=== PATIENT | male | born 1945 | race Caucasian/White ===

== ENCOUNTER → 2016-07-16 | Outpatient (CLI) | payer MEDICARE | END | disposition home or self-care (01) | LOC: PCVCCLINIC 13:15 | PROVIDERS: ATTEND Internal Medicine | DX: I25.10 Atherosclerotic heart disease of native coronary artery without angina pectoris (principal); I65.29 Occlusion and stenosis of unspecified carotid artery; I10 Essential (primary) hypertension; E78.5 Hyperlipidemia, unspecified; E11.9 Type 2 diabetes mellitus without complications; M19.90 Unspecified osteoarthritis, unspecified site | CPT/HCPCS: 93005; G0463 ==

== ENCOUNTER → 2017-01-28 | Outpatient (CLI) | payer MEDICARE | END | disposition home or self-care (01) | LOC: PCVCCLINIC 13:33 | PROVIDERS: ATTEND Internal Medicine | DX: I25.10 Atherosclerotic heart disease of native coronary artery without angina pectoris (principal); I10 Essential (primary) hypertension; I65.23 Occlusion and stenosis of bilateral carotid arteries; E78.2 Mixed hyperlipidemia; E11.9 Type 2 diabetes mellitus without complications; I73.00 Raynaud's syndrome without gangrene; M19.90 Unspecified osteoarthritis, unspecified site; I77.9 Disorder of arteries and arterioles, unspecified; Z77.098 Contact with and (suspected) exposure to other hazardous, chiefly nonmedicinal, chemicals; Z79.82 Long term (current) use of aspirin; Z79.84 Long term (current) use of oral hypoglycemic drugs; Z79.899 Other long term (current) drug therapy; Z87.891 Personal history of nicotine dependence | CPT/HCPCS: 93005; G0463 ==

== ENCOUNTER → 2017-07-29 | Outpatient (CLI) | payer MEDICARE | END | disposition home or self-care (01) | LOC: PCVCCLINIC 13:59 | DX: I25.119 Atherosclerotic heart disease of native coronary artery with unspecified angina pectoris (principal); I10 Essential (primary) hypertension; I65.23 Occlusion and stenosis of bilateral carotid arteries; E78.2 Mixed hyperlipidemia; E11.9 Type 2 diabetes mellitus without complications; I73.00 Raynaud's syndrome without gangrene; Z77.098 Contact with and (suspected) exposure to other hazardous, chiefly nonmedicinal, chemicals; Z87.891 Personal history of nicotine dependence; Z79.899 Other long term (current) drug therapy; Z79.82 Long term (current) use of aspirin; Z79.84 Long term (current) use of oral hypoglycemic drugs | CPT/HCPCS: 80061; 93005; G0463 ==

== ENCOUNTER → 2018-02-26 | Outpatient (CLI) | payer MEDICARE ==
[~2018-02-26] MED LIST: REGADENOSON 0.4 MG/5 ML DISP.SYRIN. IV ONE
--- NOTE | 2018-02-26 16:21 | PCVCIMAG ---
APPROVED REPORT Imaging Protocol: Rest Tc-99m/Stress Tc-99m 1 day Study performed: 02/26/2018 13:34:30 Indication: CAD Patient Location: Out-Patient Stress Nurse: Kenyatta Goldman RN MT Tech:JIMBO Pacheco Ht: 5 ft 10 in Wt: 215 lbs BSA: 2.15 m2 HR: 78 bpm BP: 132/76 mmHg BMI: 30.8 Rhythm: Sinus Rhythm, ST & T abnormalities Medical History Medications: Amlodipine, ASA, Atorvastatin, Lisinopril, Metformin, Metoprolol, Omeprazole Allergies: No known drug allergies Cardiac Risk Factors: Age, HTN, Hyperlipidemia, DM, Tobacco History (Former) Previous Cardiac Procedures: PCI - Circ Pretest Chest Pain Characteristics: No chest pain Physical Disabilities: Breathing, patient refuses Saravanan protocol Meds Held (24 hrs): Metoprolol Resting Data Rest SPECT myocardial perfusion imaging was performed in supine position 45 minutes following the intravenous injection of 11.8 mCi of Tc-99m Sestamibi. Time of rest injection: 1250 Date: 02/26/2018 Administration Route: IV Administration Site: Right AC Pharmacologic Stress Pharmacologic stress test was performed by injecting Regadenoson 0.4 mg IV push over 10-15 seconds immediately followed by the intravenous injection of 32.8 mCi of Tc-99m Sestamibi. Time of stress injection: 1410 Date: 02/26/2018 Administration Route: IV Administration Site: Right AC Gated Stress SPECT was performed 45 minutes after stress injection. The images were gated to evaluate regional wall motion and calculate left ventricular ejection fraction. Stress Test Details Stress Test: Pharmacologic stress was paired with low level exercise. Reason for pharmacologic stress test: Breathing. HRMax Heart Rate (APMHR): 147 bpm Resting HR: 78 bpmTarget HR (85% APMHR): 124 bpm Max HR Achieved: 108 bpm % of APMHR: 73 Recovery HR: 79 bpm BP Resting BP: 132/76 mmHg Recovery BP: 125/63 mmHg ECG Resting ECG: Sinus Rhythm, nonspecific ST-T abnormalities Stress ECG: Sinus Tachycardia, nonspecific ST-T abnormalities ST Change: None Maximum ST Deviation: 0 mm Arrhythmia: None Recovery ECG: Sinus Rhythm, nonspecific ST-T abnormalities Recovery ST Change: None Recovery ST Deviation: 0 mm Recovery Arrhythmia: None Clinical Reason for Termination: Completed protocol Stress Symptoms: Dyspnea, Lightheaded Exercise duration: 4 min 00 sec Symptoms resolved during recovery. Stress ECG Conclusion ECG: Non-ischemic Clinical: Non-ischemic Study Quality Study: Good Study Data Post stress, the left ventricular ejection was 26%.. SSS: 1 SRS: 0 SDS: 1 TID = 1.18. Perfusion No evidence of stress induced ischemia or prior myocardial infarction. Wall Motion Severely decreased left ventricular systolic function. Nuclear Conclusion No evidence of stress induced ischemia or prior myocardial infarction. Post stress, the left ventricular ejection was 26%. No prior study available for comparison. Interpreted by: Mani Solis MD Electronically Approved: 02/26/2018 15:49:08 <Conclusion> ECG: Non-ischemic Clinical: Non-ischemic
== END | disposition home or self-care (01) ==
LOC: PCVCIMAG 12:30
PROVIDERS: ATTEND Internal Medicine
DX: I25.10 Atherosclerotic heart disease of native coronary artery without angina pectoris (principal); I10 Essential (primary) hypertension; E11.9 Type 2 diabetes mellitus without complications; I65.23 Occlusion and stenosis of bilateral carotid arteries; E78.2 Mixed hyperlipidemia; I73.00 Raynaud's syndrome without gangrene; Z77.098 Contact with and (suspected) exposure to other hazardous, chiefly nonmedicinal, chemicals; Z79.899 Other long term (current) drug therapy; Z87.891 Personal history of nicotine dependence; Z79.84 Long term (current) use of oral hypoglycemic drugs; Z79.82 Long term (current) use of aspirin
CPT/HCPCS: 78452; 93005; 93017; A9500; G0463; J2785

== ENCOUNTER → 2018-09-15 | Outpatient (CLI) | payer MEDICARE ==
--- NOTE | 2018-09-15 16:27 | PCVCIMAG ---
APPROVED REPORT Study performed: 09/15/2018 14:22:41 EXAM: Comprehensive 2D, Doppler, and color-flow Echocardiogram BSA: 2.15 HR: 64 bpmBP: 112/74 mmHg Rhythm: NSR Other Information Study Quality: Technically Difficult Risk Factors: Cardiac Risk Factors: HTN, Hyperlipidemia Indications Diabetes CAD Raynauds 2D Dimensions IVSd: 12.98 (7-11mm)LVOT Diam: 20.29 (18-24mm) LVDd: 40.59 mm PWd: 12.59 (7-11mm)Ascending Ao: 32.80 (22-36mm) LVDs: 33.76 (25-40mm) Left Atrium: 34.35 (27-40mm) Aortic Root: 38.68 mm LV Single Plane 4CH: 60.39 % LV Single Plane 2CH: 64.12 % Biplane EF: 62.2 % Volumes Left Atrial Volume (Systole) Single Plane 4CH: 49.98 mLSingle Plane 2CH: 38.61 mL LA ESV Index: 21.00 mL/m2 Aortic Valve AoV Peak Rocael.: 1.54 m/s AO Peak Gr.: 9.47 mmHgLVOT Max P.97 mmHg LVOT Max V: 1.00 m/s AMY Vmax: 2.09 cm2 Mitral Valve E/A Ratio: 0.7 MV Decel. Time: 166.61 ms MV E Max Rocael.: 0.76 m/s MV A Rocael.: 1.04 m/s TDI E/Lateral E': 12.67E/Medial E': 12.67 Medial E' Rocael.: 0.06 m/s Lateral E' Rocael.: 0.06 m/s Pulmonary Valve PV Peak Gr.: 1.67 mmHg Pulmonary Vein P Vein S: 0.63 m/sP Vein A: 0.38 m/s P Vein D: 0.46 m/sP Vein A Dur.: 107.3 msec P Vein S/D Ratio: 1.37 Left Ventricle The left ventricle is normal size. There is normal LV segmental wall motion. Mild to moderate concentric left ventricular hypertrophy. Left ventricular systolic function is normal. The left ventricular ejection fraction is within the normal range. LVEF is 55-60%. Mild diastolic dysfunction is present (impaired relaxation pattern). Right Ventricle The right ventricle is normal size. The right ventricular systolic function is normal. Atria The left atrium size is normal. The right atrium size is normal. Aortic Valve The aortic valve is normal in structure. No aortic regurgitation is present. There is no aortic valvular stenosis. Mitral Valve The mitral valve is normal in structure. Mild mitral regurgitation. No evidence of mitral valve stenosis. Tricuspid Valve The tricuspid valve is normal in structure. There is no tricuspid valve regurgitation noted. Pulmonic Valve The pulmonary valve is normal in structure. Trace pulmonic regurgitation. Great Vessels The aortic root is normal in size. IVC is normal in size and collapses >50% with inspiration. Pericardium There is no pericardial effusion. <Conclusion> Left ventricular systolic function is normal. There is normal LV segmental wall motion. LVEF 55-60%. Mild diastolic dysfunction. The aortic valve is normal in structure. No aortic regurgitation or stenosis The mitral valve is normal in structure. Mild mitral regurgitation. Pulmonary artery pressure could not be reliably ascertained There is no pericardial effusion.
== END | disposition home or self-care (01) ==
LOC: PCVCIMAG 14:00
PROVIDERS: ATTEND Internal Medicine
DX: I34.0 Nonrheumatic mitral (valve) insufficiency (principal); I25.10 Atherosclerotic heart disease of native coronary artery without angina pectoris; E11.9 Type 2 diabetes mellitus without complications; I10 Essential (primary) hypertension; I65.23 Occlusion and stenosis of bilateral carotid arteries; E78.2 Mixed hyperlipidemia; I73.00 Raynaud's syndrome without gangrene; Z77.098 Contact with and (suspected) exposure to other hazardous, chiefly nonmedicinal, chemicals; Z87.891 Personal history of nicotine dependence
CPT/HCPCS: 93005; 93306; G0463

== ENCOUNTER → 2019-03-23 | Outpatient (CLI) | payer MEDICARE | END | disposition home or self-care (01) | LOC: PCVCCLINIC 13:00 | PROVIDERS: ATTEND Internal Medicine | DX: I25.10 Atherosclerotic heart disease of native coronary artery without angina pectoris (principal) | CPT/HCPCS: 36415; 80061; 93005; G0463 ==